=== PATIENT | female | born 1995 | race Caucasian/White ===

== ENCOUNTER 2024-08-16 15:05 | Emergency (ER) | payer BC ==
[~2024-08-16] VITALS: Ht 165.1 cm; Wt 72.6 kg
== END 2024-08-16 16:17 | disposition home or self-care (01) ==
LOC: ED 15:05
DX: S92.514A Nondisplaced fracture of proximal phalanx of right lesser toe(s), initial encounter for closed fracture (principal); W22.8XXA Striking against or struck by other objects, initial encounter; Y93.89 Activity, other specified; Y92.89 Other specified places as the place of occurrence of the external cause; Y99.8 Other external cause status

== ENCOUNTER 2024-10-26 18:32 | Emergency (ER) | payer BC ==
[~2024-10-26] VITALS: Wt 72.6 kg
[2024-10-26] MEDS ORDERED: Ketorolac Tromethamine 30 MG/ML VIAL IV ONE (20:00)
[2024-10-26] MEDS ORDERED: diphenhydrAMINE hydrochloride 50 MG/ML VIAL IV ONE (20:00)
[2024-10-26] MEDS ORDERED: Metoclopramide Hydrochloride 10 MG/2 ML VIAL IV ONE (20:00)
[2024-10-26] MEDS ORDERED: methylPREDNISolone sod succ 125 MG VIAL IV ONE (20:00)
[2024-10-26] MEDS ORDERED: SODIUM CHLORIDE 0.9% 1,000 ML IV ONE (20:00)
== END 2024-10-26 22:33 | disposition home or self-care (01) ==
LOC: ED 18:32
DX: G43.909 Migraine, unspecified, not intractable, without status migrainosus (principal); F32.A Depression, unspecified